=== PATIENT | female | born 1935 | race Caucasian/White ===

== ENCOUNTER 2017-07-23 12:09 | Emergency (ER) | payer MEDICARE ==
[~2017-07-23] VITALS: Ht 160 cm; Wt 63.5 kg
[2017-07-23 12:59] VITALS: BP 148/60
[2017-07-23 13:17] LABS: HEMATOCRIT 40.2 % (37.0-47.0); MEAN CORPUSCULAR VOLUME 96 FL (80-99); PLATELET COUNT 250 K/UL (150-450); RED BLOOD COUNT 4.19 M/UL (4.20-5.40); RED CELL DISTRIBUTION WIDTH 11.7 % (11.6-14.8); WHITE BLOOD COUNT 21.5 K/UL (4.8-10.8)
[2017-07-23 13:21] LABS: INR 1.1 (0.9-1.1)
[2017-07-23 13:24] LABS: ANION GAP 9 mmol/L (5-15); BLOOD UREA NITROGEN 30 mg/dL (7-18); CALCIUM 9.2 MG/DL (8.5-10.1); CARBON DIOXIDE 26 MMOL/L (21-32); CHLORIDE 102 MMOL/L (98-107); POTASSIUM 4.4 MMOL/L (3.5-5.1); SODIUM 137 MMOL/L (136-145)
--- NOTE | 2017-07-23 13:27 | Diagnostic Imaging Report ---
Indication: Altered level of consciousness Technique: Contiguous 5 mm thick transaxial imaging of the head obtained in a Siemens Sensation [address] scanner. Soft tissue and bone windows generated. Automatic Exposure Control was utilized. Total Dose length Product (DLP): 1439.[address] Dose Index Volume (CTDIvol): 70.38 mGy Comparison: none Findings: There is metallic streak artifact emanating from the posterior fossa in the area of the michelle. These may be aneurysm coils. The artifact results in obscuring of much of the posterior fossa structures. There is moderate prominence of the ventricles, basal cisterns, and cerebral sulci consistent with atrophy. Moderate, nonspecific, white matter hypoattenuation is noted throughout the brain consistent with chronic small vessel disease. There is no midline shift, edema, acute hemorrhage, mass effect, or abnormal extra-axial fluid collections is visualized. Bones and extra osseous soft tissues are unremarkable as visualized. 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 Streak artifact limits evaluation. No acute intracranial bleed, mass effect or edema. Moderate atrophy of the brain. Evidence of chronic small vessel disease involving white matter tracts. The CT scanner at [facility] is accredited by the [employer] and the scans are performed using dose optimization techniques as appropriate to a performed exam including Automatic Exposure control.
[2017-07-23 13:35] LABS: ALANINE AMINOTRANSFERASE 28 U/L (12-78); ALBUMIN 3.2 G/DL (3.4-5.0); ALBUMIN/GLOBULIN RATIO 0.8 (1.0-2.7); ALKALINE PHOSPHATASE 73 U/L (46-116); ASPARTATE AMINO TRANSFERASE 20 U/L (15-37); BILIRUBIN,TOTAL 0.8 MG/DL (0.2-1.0); CREATINE KINASE 75 U/L (26-308)
--- NOTE | 2017-07-23 13:59 | Diagnostic Imaging Report ---
Indication: Chest pain Comparison: None A single view chest radiograph was obtained. Findings: No definite infiltrate or pulmonary vascular congestion identified. There is a mild left basilar atelectasis. The heart is enlarged. The aorta is mildly enlarged consistent with atherosclerotic vascular disease. The bones are osteopenic. Impression: Mild left basal atelectasis
[2017-07-23 14:06] LABS: APPEARANCE,URINE TURBID; BILIRUBIN, URINE NEGATIVE (NEGATIVE); GLUCOSE, URINE (UA) NEGATIVE (NEGATIVE); KETONES,URINE 1+ (NEGATIVE); LEUKOCYTE ESTERASE ,URINE 3+ (NEGATIVE); NITRITE,URINE NEGATIVE (NEGATIVE); PH,URINE 5 (4.5-8.0); PROTEIN,URINE 1+ (NEGATIVE); UROBILINOGEN,URINE NORMAL MG/DL (0.0-1.0)
[2017-07-23 14:08] LABS: COLOR,URINE YELLOW
[2017-07-23] MEDS ORDERED: cefTRIAXone 1 GM in NS 55 ML IVPB ONE (15:15)
--- NOTE | 2017-07-23 15:16 | Emergency Room Report ---
History of Present Illness General Chief Complaint: Altered Level of Consciousness Source: EMS, Caregiver Present Illness HPI The patient presents to the emergency department with altered level of consciousness. Sewing Techniques Demonstrator states that her mentation has decreased although her baseline is that she is disoriented and unable to care for self. The braider operator also states that she's been having a cough and discharge from her eyes. No vomiting. Previously eating well. No diarrhea or constipation. The patient has functional decline and requires 24 hour braider operator at assisted living. Patient not give hx or verbalize. Active problems reviewed from [facility] notes. Allergies: Coded Allergies: BIMATOPROST (Verified Allergy, Unknown, 07/23/17) LOVASTATIN (Verified Allergy, Unknown, 07/23/17) SULFA (SULFONAMIDE ANTIBIOTICS) (Verified Allergy, Unknown, 07/23/17) TIMOLOL (Verified Allergy, Unknown, 07/23/17) Patient History Limited by: medical condition Past Medical History: see triage record, old chart reviewed Past Surgical History: other - aneurism clipped, breast cancer Social History Narrative assisted living - "selective treatment" POLST Reviewed Nursing Documentation: PMH: Agreed; PSxH: Agreed Nursing Documentation-PMH Past Medical History: No History, Except For Hx Cardiac Problems: No - HYPOTHYROIDISIM Hx Hypertension: Yes Hx Cancer: Yes - BREAST Hx Neurological Problems: Yes - DEMENTIA Review of Systems All Other Systems: limited Physical Exam Vital Signs Date Time Temp Pulse Resp B/P (MAP) Pulse Ox O2 Delivery O2 Flow Rate FiO2 07/23/17 12:00 99.8 86 20 160/90 96 Nasal Cannula 6.0 99.9 Sp02 EP Interpretation: reviewed, abnormal - low as interpreted by me General Appearance: well appearing, no apparent distress, lethargic, other - not responding to voice, Chronically Ill Head: normocephalic Eyes: bilateral eye other - eyes closed and purulent d/c bilat ENT: moist mucus membranes Neck: supple Respiratory: lungs clear, normal breath sounds Cardiovascular #1: regular rate, rhythm Cardiovascular #2: 2+ radial (R) Gastrointestinal: normal inspection, normal bowel sounds, non tender, no mass, non-distended Musculoskeletal: back normal, other - decreased ROM due to poor cooperation Neurologic: DTRs symmetric - decreased, sensory intact, motor weakness - diffuse, not focal, other - lethargic, not vocalizing, eyes closed, withdraws from pain Skin: normal inspection, warm/dry Medical Decision Making Diagnostic Impression: Primary Impression: Altered level of consciousness Additional Impressions: UTI (urinary tract infection) Qualified Codes: N30.00 - Acute cystitis without hematuria Acute conjunctivitis Qualified Codes: H10.33 - Unspecified acute conjunctivitis, bilateral Leukocytosis Qualified Codes: D72.829 - Elevated white blood cell count, unspecified ER Course Patient providing sparse history. She allegedly has altered mentation. There is discharge from the eyes and also according to the braider operator she has a cough. Differential includes pneumonia, urinary tract infection, sepsis, conjunctivitis, acute myocardial infarction, electrolyte imbalance amongst others. The patient will be evaluated with EKG, chest x-ray and labs including blood cultures and lactate. I ordered a Liang catheter. The patient will receive IV hydration here. The patient is more alert after IV hydration however she is confused and pulled out her IV. Labs are significant for elevated white count, pyuria. Chest x-ray is clear of infiltrates, atelectasis L base. EKG no injury. Lactate is normal. The patient was discussed with Dr. Metcalf at [place]. He accepts the patient in transfer. Antibiotics are begun. The patient is improved however ill. Laboratory Tests Test 07/23/17 12:40 07/23/17 13:30 White Blood Count 21.5 K/UL (4.8-10.8) H Red Blood Count 4.19 M/UL (4.20-5.40) L Hemoglobin 14.0 G/DL (12.0-16.0) Hematocrit 40.2 % (37.0-47.0) Mean Corpuscular Volume 96 FL (80-99) Mean Corpuscular Hemoglobin 33.4 PG (27.0-31.0) H Mean Corpuscular Hemoglobin Concent 34.9 G/DL (32.0-36.0) Red Cell Distribution Width 11.7 % (11.6-14.8) Platelet Count 250 K/UL (150-450) Mean Platelet Volume 7.9 FL (6.5-10.1) Neutrophils (%) (Auto) % (45.0-75.0) Lymphocytes (%) (Auto) % (20.0-45.0) Monocytes (%) (Auto) % (1.0-10.0) Eosinophils (%) (Auto) % (0.0-3.0) Basophils (%) (Auto) % (0.0-2.0) Differential Total Cells Counted 100 Neutrophils % (Manual) 89 % (45-75) H Lymphocytes % (Manual) 6 % (20-45) L Monocytes % (Manual) 4 % (1-10) Eosinophils % (Manual) 0 % (0-3) Basophils % (Manual) 0 % (0-2) Band Neutrophils 1 % (0-8) Platelet Estimate Adequate Platelet Morphology Normal Red Blood Cell Morphology Normal Prothrombin Time 11.2 SEC (9.30-11.50) Prothrombin Time INR 1.1 (0.9-1.1) PTT 28 SEC (23-33) Sodium Level 137 MMOL/L (136-145) Potassium Level 4.4 MMOL/L (3.5-5.1) Chloride Level 102 MMOL/L (98-107) Carbon Dioxide Level 26 MMOL/L (21-32) Anion Gap 9 mmol/L (5-15) Blood Urea Nitrogen 30 mg/dL (7-18) H Creatinine 1.0 MG/DL (0.55-1.30) Estimate Glomerular Filtration Rate mL/min (>60) Glucose Level 169 MG/DL (74-106) H Lactic Acid Level 1.90 mmol/L (0.66-2.22) Calcium Level 9.2 MG/DL (8.5-10.1) Magnesium Level 1.9 MG/DL (1.8-2.4) Total Bilirubin 0.8 MG/DL (0.2-1.0) Aspartate Amino Transferase (AST) 20 U/L (15-37) Alanine Aminotransferase (ALT) 28 U/L (12-78) Alkaline Phosphatase 73 U/L (46-116) Total Creatine Kinase 75 U/L (26-308) Troponin I 0.000 ng/mL (0.000-0.056) Pro-B-Type Natriuretic Peptide 300 pg/mL (0-125) H Total Protein 7.2 G/DL (6.4-8.2) Albumin 3.2 G/DL (3.4-5.0) L Globulin 4.0 g/dL Albumin/Globulin Ratio 0.8 (1.0-2.7) L Urine Color Yellow Urine Appearance Turbid Urine pH 5 (4.5-8.0) Urine Specific [place] 1.020 (1.005-1.035) Urine Protein 1+ (NEGATIVE) H Urine Glucose (UA) Negative (NEGATIVE) Urine Ketones 1+ (NEGATIVE) H Urine Occult Blood 1+ (NEGATIVE) H Urine Nitrite Negative (NEGATIVE) Urine Bilirubin Negative (NEGATIVE) Urine Urobilinogen Normal MG/DL (0.0-1.0) Urine Leukocyte Esterase 3+ (NEGATIVE) H Urine RBC 0-2 /HPF (0 - 2) Urine WBC 10-15 /HPF (0 - 2) H Urine Squamous Epithelial Cells Few /LPF (NONE/OCC) Urine Bacteria Few /HPF (NONE) Microbiology Date/Time Source Procedure Growth Status 07/23/17 13:30 Nasal Nares Influenza Types A,B Antigen (RHONDA) - Final Complete EKG Diagnostic Results Rate: normal Rhythm: NSR ST Segments: no acute changes Rhythm Strip Diag. Results EP Interpretation: yes Rhythm: NSR, no PVC's, no ectopy Chest X-Ray Diagnostic Results Chest X-Ray Diagnostic Results : Chest X-Ray Ordered: Yes # of Views/Limited/Complete: 1 View Indication: Other Interpretation: no effusion, no pneumothorax, other - L atelectasis Impression: Other Electronically Signed by: Alvin Gonzáles MD CT/MRI/US Diagnostic Results CT/MRI/US Diagnostic Results : Imaging Test Ordered: head Impression small vessel disease with aneurism clip Last Vital Signs Date Time Temp Pulse Resp B/P (MAP) Pulse Ox O2 Delivery O2 Flow Rate FiO2 07/23/17 17:40 99.8 95 25 157/73 98 Room Air 2.0 99.8 Status: improved Disposition: XFER SHT-TRM HOSP Condition: Serious Referrals: [facility] (PCP) Alvin Gonzáles M.D. July 23, 2017 15:15
[2017-07-23 17:15] VITALS: BP 157/73
[2017-07-23 17:40] VITALS: BP 157/73
== END 2017-07-23 17:40 | disposition short-term general hospital (02) ==
LOC: EDBD 12:09 → EMR 13:24
DX: R41.82 Altered mental status, unspecified (principal); N39.0 Urinary tract infection, site not specified; H10.33 Unspecified acute conjunctivitis, bilateral; G31.9 Degenerative disease of nervous system, unspecified
CPT/HCPCS: 36415; 70450; 71045; 80053; 81003; 82550; 82962; 83605; 83735; 83880; 84484; 85007; 85025; 85610; 85730; 86710; 87040; 87070; 87086; 87181; 87205; 93005; 99285; J0696; J1956